=== PATIENT | male | born 1940 | race Caucasian/White ===

== ENCOUNTER 2017-04-16 19:29 | Emergency (ER) | payer MEDICARE, MEDICAID ==
[~2017-04-16] VITALS: Ht 180.3 cm; Wt 79.4 kg
[~2017-04-16 19:29] MED LIST: GABAPENTIN 600600 MG PO; LISINOPRIL40 MG PO; MELOXICAM15 MG PO; NAPROSYN 500MG500 MG PO; NOMEDS XX; ROPINIROLE HYDRO1 M1 PO
--- OUTSIDE RECORDS SUMMARY | 2017-04-16 19:39 | External Medical Summary Rpt ---
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 ANG PCTRS Vital Signs Most recent 1 2 3 to oldest [Reference Range]: Temperature Temporal artery Temporal artery Temporal artery Source scanning (09/15/16 scanning (09/15/16 scanning (09/15/16 1:45 PM) 1:35 PM) 1:20 PM) Temperature Fahrenheit Fahrenheit Fahrenheit Mode (09/15/16 1:45 PM) (09/15/16 1:35 PM) (09/15/16 1:20 PM) Temperature, 97.2 Deg F 98.8 Deg F 98.8 Deg F Fahrenheit (09/15/16 1:45 PM) (09/15/16 1:35 PM) (09/15/16 1:20 PM) [96.8-99.7 Deg F] Clinical 36.2 Deg C 37.1 Deg C 37.1 Deg C Temperature, (09/15/16 1:45 PM) (09/15/16 1:35 PM) (09/15/16 1:20 PM) C Pulse Method Non-Invasive BP Device (09/15/16 10:00 AM) Heart Rate 50 bpm 56 bpm 50 bpm Monitored *LOW* *LOW* *LOW* [60-100 bpm] (09/15/16 2:15 PM) (09/15/16 2:00 PM) (09/15/16 1:45 PM) Respiratory 16 Breaths/Min 16 Breaths/Min 16 Breaths/Min Rate [14-20 (09/15/16 1:45 PM) (09/15/16 1:35 PM) (09/15/16 1:20 PM) Breaths/Min] Blood Arm, right upper Pressure (09/15/16 10:00 Location AM) Blood Non-Invasive BP Pressure Device (09/15/16 Source 10:00 AM) Blood 155/79 mmHg 156/77 mmHg 162/69 mmHg Pressure *HI* *HI* *HI* [90-140/60-9 (09/15/16 2:15 PM) (09/15/16 2:00 PM) (09/15/16 1:45 PM) 0 mmHg] Mean 90 100 92 Arterial (09/15/16 1:35 PM) (09/15/16 1:20 PM) (09/15/16 1:05 PM) Pressure (MAP)-BMDI Oxygen 97 % 99 % 97 % Saturation (09/15/16 2:15 PM) (09/15/16 2:00 PM) (09/15/16 1:45 PM) [94-100 %] Oxygen Room air Room air Room air Therapy Mode (09/15/16 2:15 PM) (09/15/16 2:00 PM) (09/15/16 1:45 PM) Oxygen Flow 8 Liter/Min 8 Liter/Min 8 Liter/Min Rate (09/15/16 1:00 PM) (09/15/16 12:55 (09/15/16 12:50 PM) PM) Problem List Condition Effective Status Health Informant Dates Status Arthritis(Co Active nfirmed) Coronary Active artery disease(Conf irmed) Disorder of Active prostate(Con firmed) Slow heart Active rate(Confirm ed) High blood Active pressure(Con firmed) Inguinal Active hernia(Confi rmed)1 Renal Active calculus(Con firmed) Stented Active coronary artery(Confi rmed) Syncope(Conf Active irmed)2 1on the right2"if I get up to fast, I get dizzy sometimes" Allergies, Adverse Reactions, Alerts Substance Reaction Severity Status Requip severe leg edema Active Medications amLODIPine 5 mg, Oral, At Bedtime, Refills: 0 carvedilol 25 mg, Oral, At Bedtime, Refills: 0 clopidogrel 75 mg, Oral, At Bedtime, Refills: 0 furosemide 40 mg, Oral, Two Times A Day, Refills: 0 gabapentin 600 mg, Oral, Three Times A Day, Refills: 0 lisinopril 40 mg, Oral, Two Times A Day, Refills: 0 spironolactone 25 mg, Oral, Every Day, Refills: 0 Results GENERAL CHEMISTRY Most recent 1 to oldest [Reference Range]: Potassium 4.5 mmol/L POC [3.5-4.9 (09/14/16 2:01 PM) mmol/L] Immunizations No data available for this section Procedures Procedure Date Related Body Site Diagnosis difibrillator came 09/07 way out 02/[address] Elliott took it the [address] our difibrillator placed for slow 02/05 rate 016 upper teeth removed 1977 cardiac stents X 2 myocardiac infarction right shoulder surgery stent to leg Social History Social History Response Type Smoking Status Never smoker Assessment and Plan No data available for this section Hospital Discharge Instructions Patient EducationDental Extraction, Care After General Anesthesia, Adult, Care After
--- OUTSIDE RECORDS SUMMARY | 2017-04-16 19:39 | External Medical Summary Rpt ---
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
--- OUTSIDE RECORDS SUMMARY | 2017-04-16 19:40 | External Medical Summary Rpt ---
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, LUMBAR REGION T82.9XXA UNSP COMP OF CARDIAC AND VASCULAR PROSTH DEV/GRFT, INIT Z01.818 ENCOUNTER FOR OTHER PREPROCEDUR AL EXAMINATION Results Labs Lab Lab Date Result Refere Interp Status Commen Order Detail nces retati t Range on Urinalysis dipstick W Reflex Microscopic panel in Urine (04-02-2017 14:03) Bacteri 1+ O complet a 017 ed [Presen 14:03 ce] in Urine sedimen t by Light microsc opy Epithel 5-10 OCC complet ial 017 ed cells.s 14:03 quamous [Presen ce] in Urine sedimen t by Microsc opy high power field Leukocy 5-10 O complet michelle 017 wbc/hpf ed [#/volu 14:03 me] in Urine Urinalysis dipstick W Reflex Microscopic panel in Urine (04-02-2017 14:03) Appeara SL CLEAR complet nce of 017 CLOUDY ed Urine 14:03 Bilirub NEGATIV NEG complet in 017 E ed [Presen 14:03 ce] in Urine by Test strip Erythro TRACE-L NEG complet cytes 017 YSED ed [Presen 14:03 ce] in Urine Color STRAW YELLOW complet of 017 ed Urine 14:03 Ketones NEGATIV NEG complet 017 E ed [Presen 14:03 ce] in Urine by Automat ed test strip Mucus 1+ NEG Abnorma complet [Presen 017 l ed ce] in 14:03 Urine sedimen t by Light microsc opy Nitrite NEGATIV NEG complet 017 E ed [Presen 14:03 ce] in Urine by Test strip Urobili 0.2 NEG complet nogen 017 ed [Presen 14:03 ce] in Urine by Test strip
--- OUTSIDE RECORDS SUMMARY | 2017-04-16 19:40 | External Medical Summary Rpt ---
Author Author , JOSE GARCIA Address Unknown Phone [email or web address] Purpose Continuity of Care Document - 02-16-2017 [...]
--- OUTSIDE RECORDS SUMMARY | 2017-04-16 19:41 | External Medical Summary Rpt ---
Demographics Preferred Language Macedonian Marital Status Unknown Temple Affiliation Unknown Race Unknown Ethnic Group Unknown Author Author JOSE Address Unknown Phone [email or web address] Purpose Continuity of Care Document - through 2016
--- OUTSIDE RECORDS SUMMARY | 2017-04-16 19:41 | External Medical Summary Rpt ---
Demographics Preferred Language Yoruba Marital Status Unknown Synagogue Affiliation Unknown Race Unknown Ethnic Group Unknown Author Author JOSE Address Unknown Phone [email or web address] Purpose Continuity of Care Document - through 2016
--- OUTSIDE RECORDS SUMMARY | 2017-04-16 19:42 | External Medical Summary Rpt ---
Demographics Preferred Language Belarusian Marital Status Unknown Scientology Affiliation Unknown Race Unknown Ethnic Group Unknown Author Author JOSE Address Unknown Phone Immunization No patient found.
--- OUTSIDE RECORDS SUMMARY | 2017-04-16 19:42 | External Medical Summary Rpt ---
Demographics Preferred Language Iranian Marital Status Unknown Jain Affiliation Unknown Race Unknown Ethnic Group Unknown Author Author JOSE Address Unknown Phone Immunization No patient found.
--- OUTSIDE RECORDS SUMMARY | 2017-04-16 19:42 | External Medical Summary Rpt ---
Author Author SOLANGEALMAZ Bustillo, [employer] Organization [employer] Address Unknown Phone Unavailable Results Urinalysis dipstick W Reflex Microscopic panel in Urine Observa Value Referen Units Interpr Notes Date tion ce etation Range COMMENTS TO HELPER COORDINATOR: BOYCE CATHETER INSERTION Collected by nurse? Y Hold specimen in OE? N Appeara SL CLEAR No No No Apr 02 nce of CLOUDY informa informa informa 2016 Urine tion in tion in tion in 2:03 PM source source source data data data Bacteri 1+ O No No No Apr 02 a informa informa informa 2016 [Presen tion in tion in tion in 2:03 PM ce] in source source source Urine data data data sedimen t by Light microsc opy Bilirub NEGATIV NEG No No No Apr 02 in E informa informa informa 2016 [Presen tion in tion in tion in 2:03 PM ce] in source source source Urine data data data by Test strip Erythro TRACE-L NEG No No No Apr 02 cytes YSED informa informa informa 2016 [Presen tion in tion in tion in 2:03 PM ce] in source source source Urine data data data Color STRAW YELLOW No No No Apr 02 of informa informa informa 2016 Urine tion in tion in tion in 2:03 PM source source source data data data Glucose NEG No No No Apr 02 [Mass/vol informati informati informati 2017 2:03 ume] in on in on in on in PM Urine by source source source Test data data data strip Ketones NEGATIV NEG mg/dL No No Apr 02 E informa informa 2016 [Presen tion in tion in 2:03 PM ce] in source source Urine data data by Automat ed test strip Mucus 1+ NEG No Abnorma No Apr 02 [Presen informa l informa 2017 ce] in tion in tion in 2:03 PM Urine source source sedimen data data t by Light microsc opy Nitrite NEGATIV NEG No No No Apr 02 E informa informa informa 2016 [Presen tion in tion in tion in 2:03 PM ce] in source source source Urine data data data by Test strip pH of 5.0 - 8.5 No Normal No Apr 02 Urine informati informati 2016 2:03 on in on in PM source source data data Protein NEG mg/dL No No Apr 02 [Mass/vol informati informati 2016 2:03 ume] in on in on in PM Urine by source source Automated data data test strip Specific 1.005 - No Normal No Apr 02 gravity 1.030 informati informati 2016 2:03 of Urine on in on in PM source source data data Epithel 5-10 OCC #/hpf No No Apr 02 ial informa informa 2016 cells.s tion in tion in 2:03 PM quamous source source data data [Presen ce] in Urine sedimen t by Microsc opy high power field Urobili 0.2 NEG E.U./dL No No Apr 02 nogen informa informa 2016 [Presen tion in tion in 2:03 PM ce] in source source Urine data data by Test strip Leukocy [5 O wbc/hpf No No Apr 02 michelle wbc/hpf informa informa 2016 [#/volu ; 10 tion in tion in 2:03 PM me] in wbc/hpf source source Urine ] data data Urinalysis dipstick W Reflex Microscopic panel in Urine Observa Value Referen Units Interpr Notes Date tion ce etation Range COMMENTS TO HELPER COORDINATOR: BOYCE CATHETER INSERTION Collected by nurse? Y Hold specimen in OE? N Appeara SL CLEAR No No No Apr 02 nce of CLOUDY informa informa informa 2016 Urine tion in tion in tion in 2:03 PM source source source data data data Bilirub NEGATIV NEG No No No Apr 02 in E informa informa informa 2016 [Presen tion in tion in tion in 2:03 PM ce] in source source source Urine data data data by Test strip Erythro TRACE-L NEG No No No Apr 02 cytes YSED informa informa informa 2016 [Presen tion in tion in tion in 2:03 PM ce] in source source source Urine data data data Color STRAW YELLOW No No No Apr 02 of informa informa informa 2016 Urine tion in tion in tion in 2:03 PM source source source data data data Glucose NEG No No No Apr 02 [Mass/vol informati informati informati 2016 2:03 ume] in on in on in on in PM Urine by source source source Test data data data strip Ketones NEGATIV NEG mg/dL No No Apr 02 E informa informa 2016 [Presen tion in tion in 2:03 PM ce] in source source Urine data data by Automat ed test strip Mucus 1+ NEG No Abnorma No Apr 02 [Presen informa l informa 2016 ce] in tion in tion in 2:03 PM Urine source source sedimen data data t by Light microsc opy Nitrite NEGATIV NEG No No No Apr 02 E informa informa informa 2016 [Presen tion in tion in tion in 2:03 PM ce] in source source source Urine data data data by Test strip pH of 5.0 - 8.5 No Normal No Apr 02 Urine informati ati 2016 2:03 on in on in PM source source data data Protein NEG mg/dL No No Apr 02 [Mass/vol informati informati 2016 2:03 ume] in on in on in PM Urine by source source Automated data data test strip Specific 1.005 - No Normal No Apr 02 gravity 1.030 ati ati 2016 2:03 of Urine on in on in PM source source data data Urobili 0.2 NEG E.U./dL No No Apr 02 nogen informa informa 2016 [Presen tion in tion in 2:03 PM ce] in source source Urine data data by Test strip CBC W Auto Differential panel in Blood Observa Value Referen Units Interpr Notes Date tion ce etation Range Basophils 0 - 0.2 K/MM3 Normal No Mar 02 informati 2016 3:10 [#/volume on in PM ] in source Blood by data Automated count Basophils 0.1 - 2.0 % Normal No Mar 02 /100 informati 2017 3:10 leukocyte on in PM s in source Blood by data Automated count Eosinophi 0.0 - 0.4 K/mm3 Normal No Mar 02 ls informati 2016 3:10 [#/volume on in PM ] in source Blood by data Automated count Eosinophi 0.1 - % Normal No Mar 02 ls/100 12.0 informati 2016 3:10 leukocyte on in PM s in source Blood by data Automated count Granulocy 1.3 - 8.0 K/mm3 Normal No Mar 02 michelle informati 2016 3:10 [#/volume on in PM ] in source Blood by data Automated count Granulocy 37.0 - % Normal No Mar 02 michelle/100 80.0 informati 2016 3:10 leukocyte on in PM s in source Blood by data Automated count Hematocri 42.0 - % Low No Mar 02 t [Volume 52.0 informati 2016 3:10 on in PM Fraction] source of Blood data Hemoglobi 14.1 - g/dL Low No Mar 02 n 18.0 informati 2016 3:10 [Mass/vol on in PM ume] in source Blood data Lymphocyt 0.7 - 4.5 K/mm3 Normal No Mar 02 informati 2016 3:10 [#/volume on in PM ] in source Unspecifi data ed specimen by Automated count Lymphocyt 10 - 50 % Normal No Mar 02 es informati 2016 3:10 [#/volume on in PM ] in source Unspecifi data ed specimen by Automated count Erythrocy 27 - 31.2 pg Normal No Mar 02 te mean informati 2016 3:10 corpuscul on in PM ar source hemoglobi data n [Entitic mass] Erythrocy 31.8 - g/dl Normal No Mar 02 te mean 35.4 informati 2016 3:10 corpuscul on in PM ar source hemoglobi data n concentra tion [Mass/vol ume] by Automated count Erythrocy 82.2 - fl Normal No Mar 02 te mean 97.8 informati 2016 3:10 corpuscul on in PM ar volume source [Entitic data volume] by Automated count Monocytes 0.1 - 1.0 K/mm3 Normal No Mar 02 informati 2016 3:10 [#/volume on in PM ] in source Blood by data Automated count Monocytes 1.7 - 9.3 % Normal No Mar 02 / informati 2017 3:10 leukocyte on in PM s in source Blood by data Automated count Platelet 7.4 - fl Normal No Mar 02 mean 10.4 informati 2016 3:10 volume on in PM [Entitic source volume] data in Blood by Automated count Platelets 142 - 424 K/mm3 Normal No Mar 02 informati 2016 3:10 [#/volume on in PM ] in source Blood data Erythrocy 4.6 - 6.2 M/mm3 Low No Mar 02 michelle informati 2016 3:10 [#/volume on in PM ] in source Amniotic data fluid Erythrocy 11.5 - % Normal No Mar 02 te 17.5 informati 2016 3:10 distribut on in PM ion width source [Entitic data volume] by Automated count Leukocyte 4.8 - K/MM3 Normal No Mar 02 s 10.8 informati 2016 3:10 [#/volume on in PM ] in source Blood data Basic metabolic panel in Blood Observa Value Referen Units Interpr Notes Date tion ce etation Range Urea 7 - 18 mg/dL High No Mar 02 nitrogen informati 2016 3:10 [Mass/vol on in PM ume] in source Serum or data Plasma Calcium 8.5 - mg/dL Normal No Mar 02 [Mass/vol 10.1 informati 2016 3:10 ume] in on in PM Serum or source Plasma data Chloride 98 - 107 mmoL/L Normal Mar 02 [Moles/vo informati 2016 3:10 lume] in on in PM Serum or source Plasma data Carbon 21.0 - mmoL/L Normal No Mar 02 dioxide, 32.0 informati 2016 3:10 total on in PM [Moles/vo source lume] in data Serum or Plasma Creatinin 0.70 - mg/dL High No Mar 02 e 1.30 informati 2016 3:10 [Mass/vol on in PM ume] in source Serum or data Plasma Estimated >60 ML/MIN No REFERENCE Mar 02 informati RANGE: 2016 3:10 glomerula on in >60 PM r source ML/MIN/1. filtratio data 73 SQUARE n rate METERSIf (GF this patient is -A merican, then multiply theresult by 1.210. Glucose 74 - 106 mg/dL Normal No Mar 02 [Mass/vol informati 2016 3:10 ume] in on in PM Serum or source Plasma data Potassium 3.5 - 5.1 mmoL/L Normal No Mar 02 informati 2017 3:10 [Moles/vo on in PM lume] in source Serum or data Plasma Sodium 136 - 145 mmoL/L Normal No Mar 02 [Moles/vo informati 2016 3:10 lume] in on in PM Serum or source Plasma data Basic metabolic panel in Blood Observa Value Referen Units Interpr Notes ti etation Range Urea 7 - 18 mg/dL Normal No Feb 16 nitrogen informati 2016 [Mass/vol on in 12:48 PM ume] in source Serum or data Plasma Calcium 8.5 - mg/dL Normal No Feb 16 [Mass/vol 10.1 informati 2016 ume] in on in 12:48 PM Serum or source Plasma data Chloride 98 - 107 mmoL/L Normal No Feb 16 [Moles/vo informati 2016 lume] in on in 12:48 PM Serum or source Plasma data Carbon 21.0 - mmoL/L High No Feb 16 dioxide, 32.0 informati 2016 total on in 12:48 PM [Moles/vo source lume] in data Serum or Plasma Creatinin 0.70 - mg/dL High No Feb 16 e 1.30 informati 2016 [Mass/vol on in 12:48 PM ume] in source Serum or data Plasma Estimated >60 ML/MIN No REFERENCE Feb 16 informati RANGE: 2017 glomerula on in >60 12:48 PM r source ML/MIN/1. filtratio data 73 SQUARE n rate METERSIf (GF this patient is -A merican, then multiply theresult by 1.210. Glucose 74 - 106 mg/dL Normal No Feb 16 [Mass/vol informati 2016 ume] in on in 12:48 PM Serum or source Plasma data Potassium 3.5 - 5.1 mmoL/L Normal No Feb 16 inform2016 [Moles/vo on in 12:48 PM lume] in source Serum or data Plasma Sodium 136 - 145 mmoL/L Normal No Feb 16 [Moles/vo informati 2016 lume] in on in 12:48 PM Serum or source Plasma data Thyroxine (T4) free [Mass/volume] in Serum or Plasma Observa Value Referen Units Interpr Notes etation Range Thyroxine 0.76 - ng/dL Normal No Feb 16 (T4) 1.46 informati 2016 free on in 12:48 PM [Mass/vol source ume] in data Serum or Plasma Hepatic function 2000 panel in Serum or Plasma Observa Value Referen Units Interpr Notes Date ti ce etation Range Albumin 3.4 - 5.0 gm/dL Low No Feb 16 [Mass/vol informati 2016 ume] in on in 12:48 PM Serum or source Plasma data Alkaline 46 - 116 U/L Normal No Feb 16 phosphata informati 2016 se on in 12:48 PM [Enzymati source c data activity/ volume] in Serum or Plasma Bilirubin 0.0 - 0.2 mg/dL Normal No Feb 16 .direct informati 2017 [Mass/vol on in 12:48 PM ume] in source Serum or data Plasma Bilirubin 0 - 0.9 mg/dL Normal No Feb 16 .indirect informati 2017 on in 12:48 PM [Mass/vol source ume] in data Serum or Plasma Bilirubin 0.2 - 1.0 mg/dL Normal No Feb 16 .total informati 2017 [Mass/vol on in 12:48 PM ume] in source Serum or data Plasma Aspartate 15 - 37 U/L Low No Feb 16 inform2016 aminotran on in 12:48 PM sferase source [Enzymati data c activity/ volume] in Serum or Plasma Alanine 12 - 78 U/L Normal No Feb 16 aminotran 2016 sferase on in 12:48 PM [Enzymati source c data activity/ volume] in Serum or Plasma Protein 6.4 - 8.2 gm/dL Low No Feb 16 [Mass/vol informati 2016 ume] in on in 12:48 PM Serum or source Plasma data Thyrotropin [Units/volume] in Serum or Plasma Observa Value Referen Units Interpr Notes Date tion ce etation Range Thyrotrop 0.358 - uIU/ml No No Feb 16 in 3.740 informati 2016 [Units/vo on in on in 12:48 PM lume] in source source Serum or data data Plasma CBC W Auto Differential panel in Blood Observa Value Referen Units Interpr Notes Date tion ce etation Range Basophils 0 - 0.2 K/MM3 Normal No Feb 16 inform2016 [#/volume on in 12:48 PM ] in source Blood by data Automated count Basophils 0.1 - 2.0 % Normal No Feb 16 /100 inform2016 leukocyte on in 12:48 PM s in source Blood by data Automated count Eosinophi 0.0 - 0.4 K/mm3 Normal No Feb 16 ls ati 2016 [#/volume on in 12:48 PM ] in source Blood by data Automated count Eosinophi 0.1 - % Normal No Feb 16 ls/100 12.0 2016 leukocyte on in 12:48 PM s in source Blood by data Automated count Granulocy 1.3 - 8.0 K/mm3 Normal No Feb 16 michelle inform2016 [#/volume on in 12:48 PM ] in source Blood by data Automated count Granulocy 37.0 - % Normal No Feb 16 michelle/100 80.0 2016 leukocyte on in 12:48 PM s in source Blood by data Automated count Hematocri 42.0 - % Low No Feb 16 t [Volume 52.0 informati 2016 on in 12:48 PM Fraction] source of Blood data Hemoglobi 14.1 - g/dL Low No Feb 16 n 18.0 inform2016 [Mass/vol on in 12:48 PM ume] in source Blood data Lymphocyt 0.7 - 4.5 K/mm3 Normal No Feb 16 es 2016 [#/volume on in 12:48 PM ] in source Unspecifi data ed specimen by Automated count Lymphocyt 10 - 50 % Normal No Feb 16 es 2016 [#/volume on in 12:48 PM ] in source Unspecifi data ed specimen by Automated count Erythrocy 27 - 31.2 pg Normal No Feb 16 te mean 2016 corpuscul on in 12:48 PM ar source hemoglobi data n [Entitic mass] Erythrocy 31.8 - g/dl Normal No Feb 16 te mean 35.4 2016 corpuscul on in 12:48 PM ar source hemoglobi data n concentra tion [Mass/vol ume] by Automated count Erythrocy 82.2 - fl Normal No Feb 16 te mean 97.8 2016 corpuscul on in 12:48 PM ar volume source [Entitic data volume] by Automated count Monocytes 0.1 - 1.0 K/mm3 Normal No Feb 162016 [#/volume on in 12:48 PM ] in source Blood by data Automated count Monocytes 1.7 - 9.3 % Normal No Feb 16 /100 inform2016 leukocyte on in 12:48 PM s in source Blood by data Automated count Platelet 7.4 - fl Normal No Feb 16 mean 10.4 2016 volume on in 12:48 PM [Entitic source volume] data in Blood by Automated count Platelets 142 - 424 K/mm3 Normal No Feb 16 inform2016 [#/volume on in 12:48 PM ] in source Blood data Erythrocy 4.6 - 6.2 M/mm3 Low No Feb 16 michelle informati 2016 [#/volume on in 12:48 PM ] in source Amniotic data fluid Erythrocy 11.5 - % Normal No Feb 16 te 17.5 informati 2016 distribut on in 12:48 PM ion width source [Entitic data volume] by Automated count Leukocyte 4.8 - K/MM3 Normal No Feb 16 s 10.8 informati 2016 [#/volume on in 12:48 PM ] in source Blood data
--- OUTSIDE RECORDS SUMMARY | 2017-04-16 19:42 | External Medical Summary Rpt ---
Author Author SOLANGEALMAZ Bustillo, [employer] Organization [employer] Address Unknown Phone Unavailable Results Urinalysis dipstick W Reflex Microscopic panel in Urine Observa Value Referen Units Interpr Notes Date tion ce etation Range COMMENTS TO METAL DRILLING MACHINE OPERATOR: BOYCE CATHETER INSERTION Collected by nurse? Y [...] Date tion ce etation Range COMMENTS TO METAL DRILLING MACHINE OPERATOR: BOYCE CATHETER INSERTION Collected by nurse? Y [...]
--- NOTE | 2017-04-16 20:03 | Urgent Treatment Center Report ---
See Addendum History of Present Issue Date/Time Seen by Provider 04/16/17 1950 Visit Reason Pt arrived:Walked Presenting Problem:PT STATES DIARRHEA FOR FOUR DAYS Location if Accident: Onset of symptoms date/time:/ or onset unknown for:MEDICAL HX UNKNOWN Have you (or family members/close friends) recently traveled outside the [place]? N If Yes, where/when: Have you had exposure to infectious disease within the past month? TB? Other? Specify: c/o diarrhea "of biblical proportions" x 4 days. poor historian. Thinks > 30 times a day. Watery. Reports starting to feel weak. Hasn't eaten in 4 days and hasn't drank anything in 3 days. Son encouraged him "to take a hit" off of something 4-5 hours ago. Thinks it was marijuania but son said it might help. "Which it did for a few hours" then symptoms returned. Tried pepto. Has helped "somewhat". Intermittent abdominal pain. Difficulty localizing the pain. Denies N/V. No known fevers. Reporting inguinal hernia repair approx 2 weeks ago. Denies complications. Reporting unknown "heart problems". Sees Dr. Elliott. "I just know my heart doesn't beat fast enough". hx of PM per chart. Source patient Exam Limitations no limitations ALLERGIES Coded Allergies: ibuprofen (From MOTRIN) (NA-NAUSEA 04/02/17) Home Medications Reported Medications Gabapentin (Gabapentin 600MG) 600 MG PO TID #90 Lisinopril (Lisinopril 40MG) 40 MG PO BID #60 TAB Spironolactone (Aldactone) 25 MG PO DAILY #30 Carvedilol (Carvedilol 25MG) 25 MG PO BID #30 CLOPIDOGREL BISULFATE (Clopidogrel) 75 MG PO DAILY #30 Furosemide 40 MG PO BID #60 Amlodipine Besylate (Amlodipine) 5 MG PO DAILY #90 History Medical History General CAD? Yes Angina: No NH: No Hypertension? Yes Hyperlipidemia? No CHF? No DVT? No PE? No COPD? No Asthma? No Anemia? No GERD? No Gastric ulcers? No GI Bleed? No Hernia? Yes Thyroid Problems? No Hypothyroidism? No CVA? No Seizures? No Diabetes? No Insulin Dependent: No Insulin Pump: No Home FSBS? No Renal Insuffiency? No UTI? No Stones? No BPH? No GB Disease: No Nephritic Syndrome? No Asplenia? No Hepatitis? No Sickle Cell Disease? No Arthritis? No Migraines? No Cataracts? No Glaucoma? No MRSA? No HIV? No TB? No Anxiety? No Depression? No Cancer? No Immunization HX DT/Tetanus Unknown Flu Refused Pneumonia Unknown Surgical Hx Previous Surgery?Y RIGHT SHOULDER PACEMAKER STENTS X3 Family History Family HX Diabetes No CAD Yes Hypertension No Hyperlipidemia Yes Cancer Yes TB No Social History Smoking Hx Smoker: Never Smoker Tobacco: No Alcohol Alcohol: No Review of Systems All Other Systems Reviewed and Negative Constitutional see HPI Respiratory denies shortness of breath Cardiovascular denies chest pain, denies palpitations Gastrointestinal see HPI Genitourinary denies: dysuria, frequency. Musculoskeletal denies other (no pain) Psychiatric/Neurological denies headache Physical Exam Vital Signs Vital Signs Date Time Temp Pulse Resp B/P Pulse O2 O2 Flow FiO2 Ox Delivery Rate 04/16 1951 98.5 64 16 146/76 96 General Appearance no apparent distress, frail Eye Exam - bilateral eye normal exam Ear, Nose, Throat dry lips, moist mucous membranes Respiratory Status No: respiratory distress, productive cough, non productive cough. Lung Sounds anterior: lungs clear. posterior: lungs clear. bilateral: lungs clear. Cardiovascular regular rate/rhythm, no peripheral edema, no murmur Gastrointestinal soft, no organomegaly, no pulsatile mass, abnormal bowel sounds (hyperactive), no guarding, no rebound, tenderness (RUQ) Back no CVA tenderness, gait abnormality (slow, shuffled) Neurologic alert, oriented x 3 Mental status normal mood/affect Skin intact, pallor, dry cracked skin Medical Decision Making LABS/Meds/Orders Pt receiving controlled substance in ED? No Results/Orders Laboratory Tests 04/16/172022: Sodium 137, Potassium 3.6, Chloride 102, Carbon Dioxide 28, BUN 18, Creatinine 1.9 H, Estimated Creat Clear 38 L, Estimated GFR (MDRD) 35, Glucose 135 H, Calcium 8.6, Phosphorus 2.8, Magnesium 2.1, Total Bilirubin 0.3, AST 16, ALT 11 L, Alkaline Phosphatase 90, Total Protein 7.0, Albumin 3.1 L, Globulin 3.9 H, Albumin/Globulin Ratio 0.8 L, Amylase 27, Lipase 79, WBC 12.6 H, RBC 3.99 L, Hgb 12.0 L, Hct 36.6 L, MCV 91.7, RDW 13.1, Plt Count 483 H, MPV 7.2 L, Gran % 89.0 H, Gran # 11.2 H, Total Counted Pending, Lymphocytes % 7.0 L, Monocytes % 3.3, Eosinophils % 0.5, Basophils % 0.1, Neutrophils Pending, Lymphocytes (Manual) Pending, Lymphocytes # 0.9, Monocytes # 0.4, Eosinophils # 0.1, Basophils # 0.0, Platelet Estimate Pending, PUBS MCHC 32.7, MCH 30.0 04/16/171957: Urine Color DARK YELLOW, Urine Appearance CLOUDY, Urine pH 5.5, Ur Specific [place] >= 1.030, Urine Protein 100, Urine Ketones NEGATIVE, Urine Blood MODERATE, Urine Nitrate NEGATIVE, Urine Bilirubin SMALL, Ur Leukocyte Esterase NEGATIVE, Urine Glucose NEGATIVE Current Medication Orders Sig/Arron Start time Last Medication Dose Route Stop Time Status Admin Sodium Chloride 1,000 ML .STK-MED ONE 04/16 2003 DC IV Sodium Chloride 1,000 ML .Q1H 04/16 2000 AC 04/16 IV 04/16 Sodium Chloride 10 ML PRN PRN 04/16 2000 AC IV 04/17 1956 Orders Procedure Date/time Status DIFFERENTIAL-WBC 04/16 2023 Active IV SALINE LOCK 04/16 1958 Active URINALYSIS/COMPLETE 04/16 1958 Complete PHOSPHORUS 04/16 1958 Complete MAGNESIUM 04/16 1958 Complete LIPASE 04/16 1958 Complete DIARRHEA PANEL, PCR 04/16 1958 Active COMPLETE METABOLIC PANEL 04/16 1958 Complete CBC WITH AUTO DIFF 04/16 1958 Active AMYLASE 04/16 1958 Complete Progress [facility] Progress Notes 1 Date 04/16/17 Time 1999 Comment ER Full. No beds at this time. Work up started in [facility] with anticipation to transfer to ER when bed available. Pt agreeable. [facility] Progress Notes 2 Date 04/16/17 Time 2054 Comment Report called to Larissa Link in ER. Still no bed available at this time. Will call when bed available. [facility] Progress Notes 3 Date 04/16/17 Time 2129 Comment Spoke to lab. Approx 45-60 more minutes on diarrhea panel. ER remains full at this time but are in the process of sending two patients out. December Beronica called to check on patient. Pt gave the ok to update her. Aware patient is doing ok at this time and will be transferred to ER when bed available. [facility] Progress Notes 4 Date 04/16/17 Time 2143 Comment bed 8 available. Larissa obando w/ pt transfer. Departure Departure Time of Disposition 2143 Disposition Still a Patient Clinical Impression Primary Impression: Diarrhea Qualifiers: Diarrhea type: unspecified type Qualified Code: R19.7 - Diarrhea, unspecified Secondary Impressions: Abdominal pain Qualifiers: Abdominal location: right upper quadrant Qualified Code: R10.11 - Right upper quadrant pain Condition STABLE Additional Instructions Discussed [facility] guidelines with patient. Agreeable to transfer to ER. Referred to ER for further evaluation and management once a bed became available. Diarrhea panel still pending at this time. IVF nearly complete. at 2142
--- NOTE | 2017-04-16 20:03 | Urgent Treatment Center Report ---
See Addendum History of Present Issue Date/Time Seen by Provider 04/16/17 1950 Visit Reason Pt arrived:Walked Presenting Problem:PT STATES DIARRHEA FOR FOUR DAYS Location if Accident: Onset of symptoms date/time:/ or onset unknown for:MEDICAL HX UNKNOWN Have you (or family members/close friends) recently traveled outside the [place]? N If Yes, where/when: Have you had exposure to infectious disease within the past month? TB? Other? Specify: c/o diarrhea "of biblical proportions" x 4 days. poor historian. Thinks > 30 times a day. Watery. Reports starting to feel weak. Hasn't eaten in 4 days and hasn't drank anything in 3 days. Son encouraged him "to take a hit" off of something 4-5 hours ago. Thinks it was marijuania but son said it might help. "Which it did for a few hours" then symptoms returned. Tried pepto. Has helped "somewhat". Intermittent abdominal pain. Difficulty localizing the pain. Denies N/V. No known fevers. Reporting inguinal hernia repair approx 2 weeks ago. Denies complications. Reporting unknown "heart problems". Sees Dr. Elliott. "I just know my heart doesn't beat fast enough". hx of PM per chart. Source patient Exam Limitations no limitations ALLERGIES Coded Allergies: ibuprofen (From MOTRIN) (NA-NAUSEA 04/02/17) Home Medications Reported Medications Gabapentin (Gabapentin 600MG) 600 MG PO TID #90 Lisinopril (Lisinopril 40MG) 40 MG PO BID #60 TAB Spironolactone (Aldactone) 25 MG PO DAILY #30 Carvedilol (Carvedilol 25MG) 25 MG PO BID #30 CLOPIDOGREL BISULFATE (Clopidogrel) 75 MG PO DAILY #30 Furosemide 40 MG PO BID #60 Amlodipine Besylate (Amlodipine) 5 MG PO DAILY #90 History Medical History General CAD? Yes Angina: No PR: No Hypertension? Yes Hyperlipidemia? No CHF? No DVT? No PE? No COPD? No Asthma? No Anemia? No GERD? No Gastric ulcers? No GI Bleed? No Hernia? Yes Thyroid Problems? No Hypothyroidism? No CVA? No Seizures? No Diabetes? No Insulin Dependent: No Insulin Pump: No Home FSBS? No Renal Insuffiency? No UTI? No Stones? No BPH? No GB Disease: No Nephritic Syndrome? No Asplenia? No Hepatitis? No Sickle Cell Disease? No Arthritis? No Migraines? No Cataracts? No Glaucoma? No MRSA? No HIV? No TB? No Anxiety? No Depression? No Cancer? No Immunization HX DT/Tetanus Unknown Flu Refused Pneumonia Unknown Surgical Hx Previous Surgery?Y RIGHT SHOULDER PACEMAKER STENTS X3 Family History Family HX Diabetes No CAD Yes Hypertension No Hyperlipidemia Yes Cancer Yes TB No Social History Smoking Hx Smoker: Never Smoker Tobacco: No Alcohol Alcohol: No Review of Systems All Other Systems Reviewed and Negative Constitutional see HPI Respiratory denies shortness of breath Cardiovascular denies chest pain, denies palpitations Gastrointestinal see HPI Genitourinary denies: dysuria, frequency. Musculoskeletal denies other (no pain) Psychiatric/Neurological denies headache Physical Exam Vital Signs Vital Signs Date Time Temp Pulse Resp B/P Pulse O2 O2 Flow FiO2 Ox Delivery Rate 04/16 1951 98.5 64 16 146/76 96 General Appearance no apparent distress, frail Eye Exam - bilateral eye normal exam Ear, Nose, Throat dry lips, moist mucous membranes Respiratory Status No: respiratory distress, productive cough, non productive cough. Lung Sounds anterior: lungs clear. posterior: lungs clear. bilateral: lungs clear. Cardiovascular regular rate/rhythm, no peripheral edema, no murmur Gastrointestinal soft, no organomegaly, no pulsatile mass, abnormal bowel sounds (hyperactive), no guarding, no rebound, tenderness (RUQ) Back no CVA tenderness, gait abnormality (slow, shuffled) Neurologic alert, oriented x 3 Mental status normal mood/affect Skin intact, pallor, dry cracked skin Medical Decision Making LABS/Meds/Orders Pt receiving controlled substance in ED? No Results/Orders Laboratory Tests 04/16/172022: Sodium 137, Potassium 3.6, Chloride 102, Carbon Dioxide 28, BUN 18, Creatinine 1.9 H, Estimated Creat Clear 38 L, Estimated GFR (MDRD) 35, Glucose 135 H, Calcium 8.6, Phosphorus 2.8, Magnesium 2.1, Total Bilirubin 0.3, AST 16, ALT 11 L, Alkaline Phosphatase 90, Total Protein 7.0, Albumin 3.1 L, Globulin 3.9 H, Albumin/Globulin Ratio 0.8 L, Amylase 27, Lipase 79, WBC 12.6 H, RBC 3.99 L, Hgb 12.0 L, Hct 36.6 L, MCV 91.7, RDW 13.1, Plt Count 483 H, MPV 7.2 L, Gran % 89.0 H, Gran # 11.2 H, Total Counted Pending, Lymphocytes % 7.0 L, Monocytes % 3.3, Eosinophils % 0.5, Basophils % 0.1, Neutrophils Pending, Lymphocytes (Manual) Pending, Lymphocytes # 0.9, Monocytes # 0.4, Eosinophils # 0.1, Basophils # 0.0, Platelet Estimate Pending, PUBS MCHC 32.7, MCH 30.0 04/16/171957: Urine Color DARK YELLOW, Urine Appearance CLOUDY, Urine pH 5.5, Ur Specific [place] >= 1.030, Urine Protein 100, Urine Ketones NEGATIVE, Urine Blood MODERATE, Urine Nitrate NEGATIVE, Urine Bilirubin SMALL, Ur Leukocyte Esterase NEGATIVE, Urine Glucose NEGATIVE Current Medication Orders Sig/Arron Start time Last Medication Dose Route Stop Time Status Admin Sodium Chloride 1,000 ML .STK-MED ONE 04/16 2003 DC IV Sodium Chloride 1,000 ML .Q1H 04/16 2000 AC 04/16 IV 04/16 Sodium Chloride 10 ML PRN PRN 04/16 2000 AC IV 04/17 1956 Orders Procedure Date/time Status DIFFERENTIAL-WBC 04/16 2023 Active IV SALINE LOCK 04/16 1958 Active URINALYSIS/COMPLETE 04/16 1958 Complete PHOSPHORUS 04/16 1958 Complete MAGNESIUM 04/16 1958 Complete LIPASE 04/16 1958 Complete DIARRHEA PANEL, PCR 04/16 1958 Active COMPLETE METABOLIC PANEL 04/16 1958 Complete CBC WITH AUTO DIFF 04/16 1958 Active AMYLASE 04/16 1958 Complete Progress [facility] Progress Notes 1 Date 04/16/17 Time 1999 Comment ER Full. No beds at this time. Work up started in [facility] with anticipation to transfer to ER when bed available. Pt agreeable. [facility] Progress Notes 2 Date 04/16/17 Time 2054 Comment Report called to Larissa Link in ER. Still no bed available at this time. Will call when bed available. [facility] Progress Notes 3 Date 04/16/17 Time 2129 Comment Spoke to lab. Approx 45-60 more minutes on diarrhea panel. ER remains full at this time but are in the process of sending two patients out. December Beronica called to check on patient. Pt gave the ok to update her. Aware patient is doing ok at this time and will be transferred to ER when bed available. [facility] Progress Notes 4 Date 04/16/17 Time 2143 Comment bed 8 available. Larissa obando w/ pt transfer. Departure Departure Time of Disposition 2143 Disposition Still a Patient Clinical Impression Primary Impression: Diarrhea Qualifiers: Diarrhea type: unspecified type Qualified Code: R19.7 - Diarrhea, unspecified Secondary Impressions: Abdominal pain Qualifiers: Abdominal location: right upper quadrant Qualified Code: R10.11 - Right upper quadrant pain Condition STABLE Additional Instructions Discussed [facility] guidelines with patient. Agreeable to transfer to ER. Referred to ER for further evaluation and management once a bed became available. Diarrhea panel still pending at this time. IVF nearly complete. at 2140
[2017-04-16 20:39] LABS: LYMPH # 0.9 K/mm3 (0.7-4.5)
[2017-04-16] MEDS ORDERED: CARVEDILOL 25MG25 MG PO (20:53)
[2017-04-16] MEDS ORDERED: ALDACTONE 25MG25 MG PO (20:53)
[2017-04-16] MEDS ORDERED: FUROSEMIDE 40MG40 M1 PO (20:54)
[2017-04-16] MEDS ORDERED: AMLO5TAB PO (20:54)
[2017-04-16] MEDS ORDERED: CLOPIDOGREL75 M2 PO (20:54)
[2017-04-16 20:59] LABS: URINE BILIRUBIN - DIPSTICK SMALL (NEG); URINE BLOOD MODERATE (NEG)
[2017-04-16 21:30] LABS: NEUTROPHILS 89 % (42-76)
[2017-04-16 22:58] LABS: AEROMONAS NOT DETECTED (NOT DETECTE); ASTROVIRUS NOT DETECTED (NOT DETECTE); CYCLOSPORA CAYETANENSIS NOT DETECTED (NOT DETECTE); E COLI O157 NOT DETECTED (NOT DETECTE); ENTEROAGGREGATIVE E COLI NOT DETECTED (NOT DETECTE); ENTEROPATHOGENIC E COLI NOT DETECTED (NOT DETECTE); ENTEROTOXIGENIC E COLI NOT DETECTED (NOT DETECTE); NOROVIRUS NOT DETECTED (NOT DETECTE); SAPOVIRUS NOT DETECTED (NOT DETECTE); SHIGA-LIKE TOXIN PROD. E COLI NOT DETECTED (NOT DETECTE); SHIGELLA/ENTEROINVASIVE E COLI NOT DETECTED (NOT DETECTE); VIBRIO CHOLERAE NOT DETECTED (NOT DETECTE)
[2017-04-16] MEDS ORDERED: ZITHROMAX 250M250 MG PO (23:58)
[2017-04-17 00:14] VITALS: BP 155/63
== END 2017-04-17 00:17 | disposition still patient (30) ==
LOC: ER 19:29 → UTC 19:38 → ER 19:38
PROVIDERS: Nurse Practitioner Family
DX: R19.7 Diarrhea, unspecified (principal); R10.11 Right upper quadrant pain; I10 Essential (primary) hypertension

== ENCOUNTER 2017-07-24 16:25 | Emergency (ER) | payer MEDICARE, MEDICAID ==
[~2017-07-24] VITALS: Ht 180.3 cm; Wt 81.6 kg
[~2017-07-24 16:25] MED LIST changes: +ALDACTONE 25MG25 MG PO; +AMLO5TAB PO; +CARVEDILOL 25MG25 MG PO; +CLOPIDOGREL75 M2 PO; +FUROSEMIDE 40MG40 M1 PO; +ZITHROMAX 250M250 MG PO
--- OUTSIDE RECORDS SUMMARY | 2017-07-24 17:00 | External Medical Summary Rpt | CCD ---
Author Author [employer] Organization [employer] Address Unknown Phone Unavailable Purpose Continuity of Care Document - through 2016
--- OUTSIDE RECORDS SUMMARY | 2017-07-24 17:00 | External Medical Summary Rpt | CCD ---
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, LUMBAR REGION R10.9 UNSPECIFIED ABDOMINAL PAIN R19.7 DIARRHEA, UNSPECIFIED T82.9XXA UNSP COMP OF CARDIAC AND VASCULAR PROSTH DEV/GRFT, INIT Z01.818 ENCOUNTER FOR OTHER PREPROCEDUR AL EXAMINATION Results Labs Lab Lab Date Result Refere Interp Status Commen Order Detail nces retati t Range on Differential panel, method unspecified - (04-16-2017 20:23) Anisocy 1+ complet tosis 017 ed [Presen 20:23 ce] in Blood LYMPH 6 % 10% - Low complet 017 50% ed 20:23 Platele SLIGHT complet ts 017 INCREAS ed [Presen 20:23 E ce] in Blood by Light microsc opy Basophi 2+ complet lic 017 ed stippli 20:23 ng [Presen ce] in Blood by Light microsc opy Urinalysis dipstick W Reflex Microscopic panel in [...]
--- OUTSIDE RECORDS SUMMARY | 2017-07-24 17:00 | External Medical Summary Rpt | CCD ---
Author Author , JOSE Organization JOSE Address Unknown Phone [email or web address] Purpose Continuity of Care Document - 02-16-2017 [...]
--- OUTSIDE RECORDS SUMMARY | 2017-07-24 17:01 | External Medical Summary Rpt | CCD ---
Demographics Preferred Language Thai Marital Status Unknown [employer] Affiliation Unknown Race Unknown Ethnic Group Unknown Author Author , JOSE GARCIA Address Unknown Phone Immunization No patient found.
--- OUTSIDE RECORDS SUMMARY | 2017-07-24 17:01 | External Medical Summary Rpt | CCD ---
Demographics Preferred Language Greek Marital Status Unknown [employer] Affiliation Unknown Race Unknown Ethnic Group Unknown Author Author , JOSE GARCIA Address Unknown Phone Immunization No patient found.
--- OUTSIDE RECORDS SUMMARY | 2017-07-24 17:02 | External Medical Summary Rpt ---
Author Author [employer], [employer] Organization [employer] Address Unknown Phone Unavailable Results DIARRHEA PANEL,PCR Observa Value Referen Units Interpr Notes Date tion ce etation Range Adenovi NOT NOT No No No Apr 16 tristan DETECTE DETECTE informa informa informa 2017 40+41 D tion in tion in tion in 8:45 PM Ag source source source [Presen data data data ce] in Stool Aeromon NOT NOT No No No Apr 16 as DETECTE DETECTE informa informa informa 2017 salmoni D tion in tion in tion in 8:45 PM alyx source source source [Presen data data data ce] in Unspeci fied specime n Astrovi NOT NOT No No No Apr 16 tristan DETECTE DETECTE informa informa informa 2017 [Presen D tion in tion in tion in 8:45 PM ce] in source source source Stool data data data by Electro n microsc opy Campylo DETECTE NOT No Abnorma No Apr 16 bacter D DETECTE informa l informa 2017 sp Ab tion in tion in 8:45 PM [Presen source source ce] in data data Serum Clostri NOT NOT No No No Apr 16 dium DETECTE DETECTE informa informa informa 2017 diffici D tion in tion in tion in 8:45 PM le source source source toxin data data data A+B [Presen ce] in Stool Cryptos NOT NOT No No No Apr 16 poridiu DETECTE DETECTE informa informa informa 2017 m sp Ag D tion in tion in tion in 8:45 PM source source source [Presen data data data ce] in Unspeci fied specime n Cyclosp NOT NOT No No No Apr 16 ora DETECTE DETECTE informa informa informa 2017 cayetan D tion in tion in tion in 8:45 PM yaritza source source source [Presen data data data ce] in Unspeci fied specime n Escheri NOT NOT No No No Apr 16 viji DETECTE DETECTE informa informa informa 2017 coli D tion in tion in tion in 8:45 PM [Presen source source source ce] in data data data Unspeci fied specime n by Culture FDA method Escheri NOT NOT No No No Apr 16 viji DETECTE DETECTE informa informa informa 2017 coli D tion in tion in tion in 8:45 PM [Presen source source source ce] in data data data Unspeci fied specime n by Culture FDA method Escheri NOT NOT No No No Apr 16 viji DETECTE DETECTE informa informa informa 2017 coli D tion in tion in tion in 8:45 PM Shiga-l source source source mati data data data toxin 1 assa Escheri NOT NOT No No No Apr 16 viji DETECTE DETECTE informa informa informa 2017 coli D tion in tion in tion in 8:45 PM O157:[id number] source source source data data data [Presen ce] in Stool by Organis m specifi c culture Entamoe NOT NOT No No No Apr 16 ba DETECTE DETECTE informa informa informa 2017 histoly D tion in tion in tion in 8:45 PM joyce source source source [Presen data data data ce] in Stool by Trichro me stain Giardia NOT NOT No No No Apr 16 DETECTE DETECTE informa informa informa 2017 lamblia D tion in tion in tion in 8:45 PM Ag source source source [Presen data data data ce] in Stool Norovir NOT NOT No No No Apr 16 us Ag DETECTE DETECTE informa informa informa 2017 [Presen D tion in tion in tion in 8:45 PM ce] in source source source Stool data data data Stool NOT NOT No No No Apr 16 Plesiom DETECTE DETECTE informa informa informa 2017 onas D tion in tion in tion in 8:45 PM shigell source source source oides data data data DNA detec Rotavir NOT NOT No No No Apr 16 us RNA DETECTE DETECTE informa informa informa 2017 detecti D tion in tion in tion in 8:45 PM on by source source source probe data data data and tar Salmone NOT NOT No No No Apr 16 lla sp DETECTE DETECTE informa informa informa 2017 DNA D tion in tion in tion in 8:45 PM [Identi source source source fier] data data data in Unspeci fied specime n by Probe & target amplifi cation method Caliciv NOT NOT No No No Apr 16 irus DETECTE DETECTE informa informa informa 2017 [Identi D tion in tion in tion in 8:45 PM fier] source source source in data data data Stool by Electro n microsc opy Escheri NOT NOT No No No Apr 16 viji DETECTE DETECTE informa informa informa 2017 coli D tion in tion in tion in 8:45 PM [Presen source source source ce] in data data data Unspeci fied specime n by Culture FDA method Escheri NOT NOT No No No Apr 16 viji DETECTE DETECTE informa informa informa 2017 coli D tion in tion in tion in 8:45 PM SXT source source source gene+H7 data data data gene [Identi fier] in Unspeci fied specime n by Probe & target amplifi cation method Vibrio NOT NOT No No No Apr 16 cholera DETECTE DETECTE informa informa informa 2016 e DNA D tion in tion in tion in 8:45 PM [Presen source source source ce] in data data data Unspeci fied specime n by Probe & target amplifi cation method Vibrio NOT NOT No No No Apr 16 sp DNA DETECTE DETECTE informa informa informa 2016 [Identi D tion in tion in tion in 8:45 PM fier] source source source in data data data Unspeci fied specime n by Probe & target amplifi cation method Vibrio NOT NOT No No No Apr 16 sp DETECTE DETECTE informa informa informa 2016 identif D tion in tion in tion in 8:45 PM ied in source source source Stool data data data by Organis m specifi c culture CBC W Auto Differential panel in Blood Observa Value Referen Units Interpr Notes Date tion ce etation Range Basophils 0 - 0.2 K/MM3 Normal No Apr 16 informati 2016 8:23 [#/volume on in PM ] in source Blood by data Automated count Basophils 0.1 - 2.0 % Normal No Apr 16 informati 2016 8:23 leukocyte on in PM s in source Blood by data Automated count Eosinophi 0.0 - 0.4 K/mm3 Normal No Apr 16 ls informati 2016 8:23 [#/volume on in PM ] in source Blood by data Automated count Eosinophi 0.1 - % Normal No Apr 16 ls/100 12.0 informati 2016 8:23 leukocyte on in PM s in source Blood by data Automated count Granulocy 1.3 - 8.0 K/mm3 High No Apr 16 michelle informati 2016 8:23 [#/volume on in PM ] in source Blood by data Automated count Granulocy 37.0 - % High No Apr 16 michelle/100 80.0 informati 2016 8:23 leukocyte on in PM s in source Blood by data Automated count Hematocri 42.0 - % Low No Apr 16 t [Volume 52.0 informati 2016 8:23 on in PM Fraction] source of Blood data Hemoglobi 14.1 - g/dL Low No Apr 16 n 18.0 informati 2016 8:23 [Mass/vol on in PM ume] in source Blood data Lymphocyt 0.7 - 4.5 K/mm3 Normal No Apr 16 es informati 2016 8:23 [#/volume on in PM ] in source Unspecifi data ed specimen by Automated count Lymphocyt 10 - 50 % Low No Apr 16 es informati 2016 8:23 [#/volume on in PM ] in source Unspecifi data ed specimen by Automated count Erythrocy 27 - 31.2 pg Normal No Apr 16 te mean informati 2016 8:23 corpuscul on in PM ar source hemoglobi data n [Entitic mass] Erythrocy 31.8 - g/dl Normal No Apr 16 te mean 35.4 informati 2016 8:23 corpuscul on in PM ar source hemoglobi data n concentra tion [Mass/vol ume] by Automated count Erythrocy 82.2 - fl Normal No Apr 16 te mean 97.8 informati 2016 8:23 corpuscul on in PM ar volume source [Entitic data volume] by Automated count Monocytes 0.1 - 1.0 K/mm3 Normal No Apr 16 informati 2016 8:23 [#/volume on in PM ] in source Blood by data Automated count Monocytes 1.7 - 9.3 % Normal No Apr 16 informati 2016 8:23 leukocyte on in PM s in source Blood by data Automated count Platelet 7.4 - fl Low No Apr 16 mean 10.4 informati 2017 8:23 volume on in PM [Entitic source volume] data in Blood by Automated count Platelets 142 - 424 K/mm3 High No Apr 11 informati 2017 8:23 [#/volume on in PM ] in source Blood data Erythrocy 4.6 - 6.2 M/mm3 Low No Apr 16 michelle informati 2016 8:23 [#/volume on in PM ] in source Amniotic data fluid Erythrocy 11.5 - % Normal No Apr 16 te 17.5 informati 2016 8:23 distribut on in PM ion width source [Entitic data volume] by Automated count Leukocyte 4.8 - K/MM3 High No Apr 16 s 10.8 informati 2016 8:23 [#/volume on in PM ] in source Blood data Differential panel, method unspecified - Observa Value Referen Units Interpr Notes Date tion ce etation Range Anisocy 1+ No No No No Apr 16 tosis informa informa informa informa 2016 [Presen tion in tion in tion in tion in 8:23 PM ce] in source source source source Blood data data data data Neutrophi 0 - 8 % Normal No Apr 16 ls.band informati 2017 8:23 form/100 on in PM leukocyte source s in data Blood by Automated count LYMPH 6 10 - 50 % Low No Apr 162016 tion in 8:23 PM source data Metamyelo 0 - 1 % Normal No Apr 16 cytes/100 informati 2016 8:23 on in PM leukocyte source s in data Blood by Manual count Monocytes 2 - 9 % Normal No Apr 11 / informati 2016 8:23 leukocyte on in PM s in source Blood by data Automated count Platele SLIGHT No No No No Apr 16 ts INCREAS informa informa informa informa 2016 [Presen E tion in tion in tion in tion in 8:23 PM ce] in source source source source Blood data data data data by Light microsc opy Neutrophi 42 - 76 % High No Apr 16 ls informati 2016 8:23 [#/volume on in PM ] in source Blood by data Automated count Basophi 2+ No No No No Apr 16 lic informa informa informa informa 2017 stippli tion in tion in tion in tion in 8:23 PM ng source source source source [Presen data data data data ce] in Blood by Light microsc opy Cells No #CELLS No No Apr 16 Counted informati informati informati 2017 8:23 Total [#] on in on in on in PM in Blood source source source data data data Amylase [Enzymatic activity/volume] in Serum or Plasma Observa Value Referen Units Interpr Notes Date tion ce etation Range Amylase 25 - 115 U/L Normal No Apr 16 [Enzymati informati 2017 8:23 c on in PM activity/ source volume] data in Serum or Plasma Comprehensive metabolic 2000 panel in Serum or Plasma Observa Value Referen Units Interpr Notes Date tion ce etation Range Albumin/G 1.1 - 1.8 No Low No Apr 16 lobulin informati informati 2016 8:23 [Mass on in on in PM ratio] in source source Serum or data data Plasma Albumin 3.4 - 5.0 gm/dL Low No Apr 16 [Mass/vol informati 2017 8:23 ume] in on in PM Serum or source Plasma data Alkaline 46 - 116 U/L Normal No Apr 16 phosphata informati 2017 8:23 se on in PM [Enzymati source c data activity/ volume] in Serum or Plasma Bilirubin 0.2 - 1.0 mg/dL Normal No Apr 16 .total informati 2017 8:23 [Mass/vol on in PM ume] in source Serum or data Plasma Urea 7 - 18 mg/dL Normal No Apr 16 nitrogen informati 2016 8:23 [Mass/vol on in PM ume] in source Serum or data Plasma Calcium 8.5 - mg/dL Normal No Apr 16 [Mass/vol 10.1 informati 2017 8:23 ume] in on in PM Serum or source Plasma data Chloride 98 - 107 mmoL/L Normal No Apr 16 [Moles/vo informati 2017 8:23 lume] in on in PM Serum or source Plasma data Carbon 21.0 - mmoL/L Normal No Apr 16 dioxide, 32.0 informati 2017 8:23 total on in PM [Moles/vo source lume] in data Serum or Plasma Creatinin 0.70 - mg/dL High No Apr 16 e 1.30 informati 2017 8:23 [Mass/vol on in PM ume] in source Serum or data Plasma Creatinin 50 - 200 ML/MIN Low No Apr 16 e renal informati 2017 8:23 clearance on in PM source predicted data by Cockcroft -Gault formula Estimated >60 ML/MIN No REFERENCE Apr 16 informati RANGE: 2017 8:23 glomerula on in >60 PM r source ML/MIN/1. filtratio data 73 SQUARE n rate METERSIf (GF this patient is -A merican, then multiply theresult by 1.210. Globulin 1.3 - 3.2 gm/dL High No Apr 16 [Mass/vol informati 2016 8:23 ume] in on in PM Serum source data Glucose 74 - 106 mg/dL High No Apr 16 [Mass/vol informati 2016 8:23 ume] in on in PM Serum or source Plasma data Potassium 3.5 - 5.1 mmoL/L Normal No Apr 16 inform2016 8:23 [Moles/vo on in PM lume] in source Serum or data Plasma Sodium 136 - 145 mmoL/L Normal No Apr 16 [Moles/vo informati 2016 8:23 lume] in on in PM Serum or source Plasma data Aspartate 15 - 37 U/L Normal No Apr 16 inform2016 8:23 aminotran on in PM sferase source [Enzymati data c activity/ volume] in Serum or Plasma Alanine 12 - 78 U/L Low No Apr 16 aminotran informati 2016 8:23 sferase on in PM [Enzymati source c data activity/ volume] in Serum or Plasma Protein 6.4 - 8.2 gm/dL Normal No Apr 16 [Mass/vol informati 2016 8:23 ume] in on in PM Serum or source Plasma data Lipase [Enzymatic activity/volume] in Serum or Plasma Observa Value Referen Units Interpr Notes Date ti ce etation Range Lipase 73 - 393 U/L Normal No Apr 16 [Enzymati informati 2016 8:23 c on in PM activity/ source volume] data in Serum or Plasma Magnesium [Moles/volume] in Unspecified specimen Observa Value Referen Units Interpr Notes Date ti ce etation Range Magnesium 1.4 - 2.2 mg/dL Normal No Apr 16 informati 2016 8:23 [Moles/vo on in PM lume] in source Unspecifi data ed specimen Phosphate [Moles/volume] in Unspecified specimen Observa Value Referen Units Interpr Notes Date tion ce etation Range Phosphate 2.4 - 4.9 mg/dL Normal No Apr 16 informati 2017 8:23 [Moles/vo on in PM lume] in source Unspecifi data ed specimen Urinalysis dipstick W Reflex Microscopic panel in Urine Observa Value Referen Units Interpr Notes Date tion ce etation Range COMMENTS TO CHEMIST BIOLOGICAL: BOYCE CATHETER INSERTION Collected by nurse? Y Hold specimen in OE? N Appeara SL CLEAR No No No Apr 02 nce of CLOUDY informa informa informa 2017 Urine tion in tion in tion in [...] Normal No Apr 02 Urine informati informati 2017 2:03 on in on in PM source source data data Protein NEG mg/dL No No Apr 02 [Mass/vol informati informati 2016 2:03 ume] in on in on in PM Urine by source source Automated data data test strip Specific 1.005 - No Normal No Apr 02 gravity 1.030 informati informati 2017 2:03 of Urine on in on in PM source source data data Epithel 5-10 OCC #/hpf No No Apr 02 ial informa informa 2017 cells.s tion in tion in 2:03 PM [...] Date tion ce etation Range COMMENTS TO CHEMIST BIOLOGICAL: BOYCE CATHETER INSERTION Collected by nurse? Y Hold specimen in OE? N Appeara SL CLEAR No No No Apr 02 nce of CLOUDY informa informa informa 2017 Urine tion in tion in tion in [...] No Apr 02 of informa informa informa 2017 Urine tion in tion in tion in [...] Abnorma No Apr 02 [Presen informa l inform2016 ce] in tion in tion in 2:03 [...] - 2.0 % Normal No Mar 02 / informati 2016 3:10 leukocyte on in PM [...] K/mm3 Normal No Mar 02 michelle informati 2017 3:10 [#/volume on in PM ] in [...] - 4.5 K/mm3 Normal No Mar 02 es informati 2016 [...] Chloride 98 - 107 mmoL/L Normal No Mar 02 [Moles/vo informati [...] ML/MIN No REFERENCE Mar 02 informati RANGE: 2017 3:10 glomerula on in >60 PM r source ML/MIN/1. filtratio data 73 SQUARE n rate METERSIf (GF this patient is -A merican, then multiply theresult by 1.210. Glucose 74 - 106 mg/dL Normal No Mar 02 [Mass/vol informati 2016 3:10 ume] in on in PM Serum or source Plasma data Potassium 3.5 - 5.1 mmoL/L Normal No Mar 02 informati 2016 3:10 [Moles/vo on in PM lume] in source Serum or data Plasma Sodium 136 - 145 mmoL/L Normal No Mar 02 [Moles/vo informati 2016 3:10 lume] in on in PM Serum or source Plasma data Basic metabolic panel in Blood Observa Value Referen Units Interpr Notes Date ti ce etation Range Urea 7 - 18 mg/dL Normal No Feb 16 nitrogen inform2016 [Mass/vol on in 12:48 PM ume] [...] High No Feb 16 e 1.30 informati 2017 [Mass/vol on in 12:48 PM [...] Interpr Notes Date ti ce etation Range Thyroxine 0.76 - ng/dL Normal No Feb 16 (T4) 1.46 informati 2016 free on in 12:48 PM [Mass/vol source ume] in data Serum or Plasma Hepatic function 2000 panel in Serum or Plasma Observa Value Referen Units Interpr Notes Date tion ce etation Range Albumin 3.4 - 5.0 gm/dL Low No Feb 16 [Mass/vol informati 2017 ume] in on in 12:48 PM Serum or source Plasma data Alkaline 46 - 116 U/L Normal No Feb 16 phosphata informati 2016 se on in 12:48 PM [Enzymati source c data activity/ volume] in Serum or Plasma Bilirubin 0.0 - 0.2 mg/dL Normal No Feb 16 .direct informati 2016 [Mass/vol on in 12:48 PM ume] in source Serum or data Plasma Bilirubin 0 - 0.9 mg/dL Normal No Feb 16 .indirect informati 2017 on in 12:48 PM [Mass/vol source ume] in data Serum or Plasma Bilirubin 0.2 - 1.0 mg/dL Normal No Feb 16 .total informati 2016 [Mass/vol on in 12:48 PM ume] in source Serum or data Plasma Aspartate 15 - 37 U/L Low No Feb 16 inform2016 aminotran on in 12:48 PM sferase source [Enzymati data c activity/ volume] in Serum or Plasma Alanine 12 - 78 U/L Normal No Feb 16 aminotran inform2016 sferase on in 12:48 PM [Enzymati source [...] No No Feb 16 in 3.740 informati inform2016 [Units/vo on in on in 12:48 PM lume] in source source Serum or data data Plasma CBC W Auto Differential panel in Blood Observa Value Referen Units Interpr Notes Date tion ce etation Range Basophils 0 - 0.2 K/MM3 Normal No Feb 162016 [#/volume on in [...] 8.0 K/mm3 Normal No Feb 16 michelle 2016 [#/volume on in 12:48 PM ] [...] g/dL Low No Feb 16 n 18.0 informati 2016 [Mass/vol on in 12:48 PM ume] in source Blood data Lymphocyt 0.7 - 4.5 K/mm3 Normal No Feb 16 es inform2016 [#/volume on in 12:48 PM ] in source Unspecifi data ed specimen by Automated count Lymphocyt 10 - 50 % Normal No Feb 16 es inform2016 [#/volume on in 12:48 PM ] [...] Normal No Feb 16 te mean 97.8 inform2016 corpuscul on in 12:48 PM ar volume [...] Normal No Feb 16 te 17.5 informati 2017 distribut on in 12:48 PM ion width source [Entitic data volume] by Automated count Leukocyte 4.8 - K/MM3 Normal No Santi 13 s 10.8 informati 2017 [#/volume on in 12:48 PM ] in source Blood data
--- OUTSIDE RECORDS SUMMARY | 2017-07-24 17:02 | External Medical Summary Rpt ---
[...] Date tion ce etation Range COMMENTS TO BLEACHER LARD: BOYCE CATHETER INSERTION Collected by nurse? Y [...] Date tion ce etation Range COMMENTS TO BLEACHER LARD: BOYCE CATHETER INSERTION Collected by nurse? Y [...]
--- NOTE | 2017-07-24 17:25 | Urgent Treatment Center Report ---
History of Present Issue Date/Time Seen by Provider 07/24/17 1708 Visit Reason Pt arrived:Walked Presenting Problem:SKIN TEAR TO LEFT ARM 230 TODAY ON ICE MACHINE DOOR Location if Accident: Onset of symptoms date/time:/ or onset unknown for:MEDICAL HX UNKNOWN Have you (or family members/close friends) recently traveled outside the [place]? If Yes, where/when: Have you had exposure to infectious disease within the past month? TB? Other? Specify: Patient state that he was at the store earlier when the wind caught the door on the ice machine and blew it open and the cheng on the door struck him in the left forearm causing small skin tear State that he didn't want to come in but family was afraid that it may get infected ALLERGIES Coded Allergies: ibuprofen (From MOTRIN) (NA-NAUSEA 04/02/17) Home Medications Active Scripts Azithromycin (Zithromax 250 Mg) 500 MG PO DAILY #5 TAB Prov: 04/16/17 Reported Medications Gabapentin (Gabapentin 600MG) 600 MG PO TID #90 Lisinopril (Lisinopril 40MG) 40 MG PO BID #60 TAB Spironolactone (Aldactone) 25 MG PO DAILY #30 Carvedilol (Carvedilol 25MG) 25 MG PO BID #30 CLOPIDOGREL BISULFATE (Clopidogrel) 75 MG PO DAILY #30 Furosemide 40 MG PO BID #60 Amlodipine Besylate (Amlodipine) 5 MG PO DAILY #90 History Medical History General CAD? Yes Angina: No GA: No Hypertension? Yes Hyperlipidemia? No CHF? No DVT? No PE? No COPD? No Asthma? No Anemia? No GERD? No Gastric ulcers? No GI Bleed? No Hernia? Yes Thyroid Problems? No Hypothyroidism? No CVA? No Seizures? No Diabetes? No Insulin Dependent: No Insulin Pump: No Home FSBS? No Renal Insuffiency? No UTI? No Stones? No BPH? No GB Disease: No Nephritic Syndrome? No Asplenia? No Hepatitis? No Sickle Cell Disease? No Arthritis? No Migraines? No Cataracts? No Glaucoma? No MRSA? No HIV? No TB? No Anxiety? No Depression? No Cancer? No Immunization HX DT/Tetanus Unknown Flu Refused Pneumonia Unknown Surgical Hx Previous Surgery?Y RIGHT SHOULDER PACEMAKER STENTS X3 Family History Family HX Diabetes No CAD Yes Hypertension No Hyperlipidemia Yes Cancer Yes TB No Social History Alcohol Alcohol: No Review of Systems All Other Systems Reviewed and Negative Skin other Physical Exam Vital Signs Vital Signs Date Time Temp Pulse Resp B/P Pulse O2 O2 Flow FiO2 Ox Delivery Rate 07/24 1753 98.0 52 18 145/65 95 07/24 1706 98.0 52 18 145/65 95 07/24 1648 98.0 52 18 145/65 95 General Appearance normal appearance, WD/WN, no apparent distress Respiratory Status Yes: trachea midline, chest symmetrical, non tender chest. No: respiratory distress. Lung Sounds bilateral: normal breath sounds, lungs clear. Cardiovascular normal exam, regular rate/rhythm, no peripheral edema Extremities small skin tear noted on left forearm, area cleaned well with betadine and saline and dermabond placed Neurologic alert, normal exam, oriented x 3 Medical Decision Making LABS/Meds/Orders Pt receiving controlled substance in ED? No Results/Orders Current Medication Orders Sig/Arron Start time Last Medication Dose Route Stop Time Status Admin Diphtheria/Pertussis/ 0 .STK-MED ONE 07/24 1753 DC Tetanus Vacc IM Diphtheria/Pertussis/ 0.5 ML ONCE ONE 07/24 1730 DC 07/24 Tetanus Vacc IM 07/24 1731 175 Procedures Laceration/Wound Repair Laceration/Wound Repair Risks/benefits discussed with pt/guardian? Yes Tetanus status not up to date, unknown, Given in [facility] Wound Location forearm Wound Length (cm) 2 Wound's Depth, Shape superficial Wound Explored clean Wound Prep Betadine, Hibiclens, Saline Wound Debrided none Wound Repaired With Steri-strips, Dermabond Sterile Dressing Applied Yes Departure Departure Time of Disposition 2118 Disposition DC Home or Self Care(routine) Clinical Impression Primary Impression: Skin tear Condition STABLE Patient Instructions DI for Laceration Repair With Dermabond Additional Instructions Follow up with family doctor Return if needed Do not remove Steri strips allow them to fall off on their own Keep area clean and dry Discharge Counseling Counseled pt/family regarding diagnosis, home care, follow up needs at 2119
[2017-07-24 17:53] VITALS: BP 145/65
== END 2017-07-24 18:00 | disposition home or self-care (01) ==
LOC: ER 16:25 → UTC 16:58 → ER 16:58 → UTC 18:00
PROC: 0HQEXZZ Repair Left Lower Arm Skin, External Approach (ICD-10-PCS; principal; 2017-07-24)
DX: S51.812A Laceration without foreign body of left forearm, initial encounter (principal); W31.89XA Contact with other specified machinery, initial encounter; Y92.9 Unspecified place or not applicable; I10 Essential (primary) hypertension; Z23 Encounter for immunization
CPT/HCPCS: 12001; G0463